=== PATIENT | female | born 1950 | race Caucasian/White ===

== ENCOUNTER 2017-12-13 08:16 | Day surgery (SDC) ==
[2016-04-20 16:32] VITALS: BMI 18.3
[2017-12-13] MEDS ORDERED: LIDOCAINE 1% 20 ML MDV ID STA (08:39)
[2017-12-13 08:58] VITALS: TEMP 98
[2017-12-13] MEDS ORDERED: LIDOCAINE HCL 2% LUER-JET ONE (11:43)
[2017-12-13] MEDS ORDERED: DIPRIVAN 20 ML VIAL IVP ONE (11:43)
[2017-12-13] MEDS ORDERED: ROMAZICON IVP ONE (11:43)
[2017-12-13] MEDS ORDERED: VERSED ONE (11:43)
[2017-12-13 12:36] VITALS: BP 135/70
--- NOTE | 2017-12-14 09:45 | OP ---
INDICATIONS FOR PROCEDURE: 67 year old female presents for endoscopy and colonoscopy exam. She apparently was anemic with heme positive stools but that is resolved. Her last hgb was above 12. She also has a family history of colon cancer and last colonoscopy was over 10 years ago. Her mother had colon cancer. She is scheduled for endoscopy and colonoscopy exams. MEDICATIONS: SEE ANESTHESIA NOTES. PROCEDURE: 1. ENDOSCOPY 2. COLONOSCOPY/SNARE POLYPECTOMY/ BIOPSY REPORT: The risks, benefits, alternatives and limitations were discussed in detail with the patient. Informed consent was obtained. After adequate sedation was achieved, the video endoscope was introduced in the posterior pharynx and esophagus under direct vision and easily advanced down to the second portion of the duodenum. I then slowly withdrew. The duodenal mucosa appeared unremarkable as did the duodenal bulb. The antrum body is relatively unremarkable. The scope was retroflexed to look at the cardia and fundus which revealed a large hiatal hernia. The scope was anteflexed. The diaphragmatic hiatus was roughly at 37cm and there was a hiatal hernia pouch that extended all the way up to 31cm. This was consistent with a 6cm hiatal hernia. The esophageal mucosa was unremarkable and the lumen was a little it torturous. The patient tolerated this procedure well with stable vital signs and pulse oximetry throughout. The patient's bed was turned a digital rectal exam revealed good tone, no masses. The colonoscope was introduced into the rectum and advanced under direct visual guidance to the cecum. The cecum was identified by the appendiceal orifice and IC valve. I then slowly withdrew the scope in circumferential manner and examined the mucosa quite careful. I looked on the proximal and distal sides of folds and flexures as best as possible. I was able to retroflex the scope in the right colon and the left colon to increase visualization. At the Hepatic flexure there was a small 4-5mm polyp that I removed and destroyed using a hot snare. In the distal transverse colon there is a raised 6mm polyp that I removed by snare technique this was retrieved in the sigmoid colon there was a 3rd polyp that was slightly raised about 6mm in size. It was removed by snare technique as well. There are a few small mouth diverticuli scattered throughout the sigmoid. On retroflex view of the anal canal there was a prominent anal papillae. I biopsied this for histological review although it did not appear to be polypoid tissue. No other abnormalities were noted. The prep was good. Withdraw time was 12 minutes and 58 seconds. The patient tolerated the procedure well with stable vital signs and pulse oximetry throughout. IMPRESSION: 1. Large 6cm hiatal hernia 2. 3 colonic polyps removed 3. Prominent anal papillae, biopsied 4. Mild sigmoid diverticulosis RECOMMENDATIONS: 1. High fiber diet 2. Reflux precautions 3. Await colon pathology and if everything is benign and adenomatous as expected I recommend repeat colonoscopy exam again in 3 years otherwise screening in 5 years if there is no adenomatous changes. 4. Await anal papillae biopsy to confirm benign nature 5. We will see her back in the office as needed CC: Dr. Bronson MUNOZ
== END 2017-12-13 14:40 | disposition home or self-care (01) ==
LOC: SURG 08:16
PROVIDERS: ATTEND Internal Medicine Gastroenterology
DX: Z86.2 Personal history of diseases of the blood and blood-forming organs and certain disorders involving the immune mechanism (principal); Z80.0 Family history of malignant neoplasm of digestive organs; D12.9 Benign neoplasm of anus and anal canal; D12.5 Benign neoplasm of sigmoid colon; D12.3 Benign neoplasm of transverse colon; K44.9 Diaphragmatic hernia without obstruction or gangrene; K57.30 Diverticulosis of large intestine without perforation or abscess without bleeding

== ENCOUNTER 2018-03-16 11:46 | Inpatient (IN) ==
[2018-03-16 14:33] VITALS: BMI 16.3
[2018-03-16] MEDS ORDERED: PAMELOR PO PRN (17:44)
[2018-03-16] MEDS ORDERED: CALCIUM CARBONATE 200 MG PO PRN (17:44)
[2018-03-16] MEDS ORDERED: NON-FORMULARY MEDICATION (Aspirin/Acetaminophen/Caffeine [Excedrin Migraine Caplet] 1 EACH PO PRN (17:44)
[2018-03-16] MEDS: SILVADENE CREAM TP SCH ×2 (18:22→20:58)
[2018-03-16] MEDS ORDERED: VANCOMYCIN 1 GM in SODIUM CHLORIDE 250 ML IV SCH (18:30)
[2018-03-16] MEDS: SODIUM CHLORIDE 1,000 ML IV SCH (18:31)
[2018-03-16] MEDS: PERCOCET 10-325 PO SCH ×2 (18:32→23:40)
[2018-03-16] MEDS ORDERED: AZACTAM ONE (20:00)
[2018-03-16] MEDS: AZACTAM 1 GM in SODIUM CHLORIDE 50 ML IV SCH (20:56)
[2018-03-16] MEDS: PLETAL PO SCH (20:57)
[2018-03-16] MEDS: PREDNISONE PO SCH (20:57)
[2018-03-17] MEDS ORDERED: AZACTAM ONE (04:53)
[2018-03-17] MEDS: PERCOCET 10-325 PO SCH ×3 (05:06→18:15)
[2018-03-17] MEDS: AZACTAM 1 GM in SODIUM CHLORIDE 50 ML IV SCH ×3 (05:06→20:43)
[2018-03-17] MEDS: VANCOMYCIN 500 MG in SODIUM CHLORIDE 100 ML IV SCH ×2 (09:07→22:44)
[2018-03-17] MEDS: SILVADENE CREAM TP SCH ×2 (09:07→18:48)
[2018-03-17] MEDS: PREDNISONE PO SCH ×4 (09:08→20:45)
[2018-03-17] MEDS ORDERED: PREDNISONE PO STA (10:51)
[2018-03-17] MEDS ORDERED: NON-FORMULARY MEDICATION (Ferrous Sulfate [Ferrous Sulfate] 325 MG) PO SCH (12:00)
[2018-03-17] MEDS: MULTIVITAMIN TABLET PO SCH (12:58)
[2018-03-17] MEDS: PLETAL PO SCH ×2 (12:58→20:44)
[2018-03-17] MEDS: FERROUS SULFATE PO SCH (12:58)
[2018-03-17] MEDS: VITAMIN D PO SCH (12:59)
[2018-03-17] MEDS: BENADRYL PO PRN ×2 (13:01→23:12)
[2018-03-17] MEDS: PRILOSEC PO SCH (16:47)
[2018-03-17] MEDS ORDERED: GENTAMICIN SULFATE TP ONE (18:17)
[2018-03-17] MEDS: GENTAMICIN SULFATE TP SCH (20:44)
[2018-03-17] MEDS ORDERED: NON-FORMULARY MEDICATION (Omeprazole Magnesium [Prilosec Otc] 20 MG) PO SCH (21:00)
[2018-03-18] MEDS: PERCOCET 10-325 PO SCH ×4 (00:21→17:23)
[2018-03-18] MEDS: AZACTAM 1 GM in SODIUM CHLORIDE 50 ML IV SCH ×3 (05:03→20:42)
[2018-03-18] MEDS: SODIUM CHLORIDE 1,000 ML IV SCH (06:23)
[2018-03-18] MEDS: VANCOMYCIN 500 MG in SODIUM CHLORIDE 100 ML IV SCH ×2 (10:13→22:22)
[2018-03-18] MEDS: GENTAMICIN SULFATE TP SCH ×3 (10:16→22:24)
[2018-03-18] MEDS: PREDNISONE PO SCH ×2 (10:17→20:42)
[2018-03-18] MEDS: VITAMIN D PO SCH (13:02)
[2018-03-18] MEDS: PLETAL PO SCH ×2 (13:02→20:42)
[2018-03-18] MEDS: FERROUS SULFATE PO SCH (13:03)
[2018-03-18] MEDS: MULTIVITAMIN TABLET PO SCH (13:03)
[2018-03-18] MEDS: PRILOSEC PO SCH (16:27)
[2018-03-19] MEDS: PERCOCET 10-325 PO SCH ×3 (00:16→11:36)
[2018-03-19] MEDS: AZACTAM 1 GM in SODIUM CHLORIDE 50 ML IV SCH ×3 (05:25→20:20)
[2018-03-19] MEDS: GENTAMICIN SULFATE TP SCH ×3 (09:18→20:20)
[2018-03-19] MEDS: PREDNISONE PO SCH ×2 (09:19→20:20)
[2018-03-19] MEDS: VANCOMYCIN 500 MG in SODIUM CHLORIDE 100 ML IV SCH (09:47)
[2018-03-19] MEDS: PLETAL PO SCH ×2 (11:35→20:20)
[2018-03-19] MEDS: VITAMIN D PO SCH (11:35)
[2018-03-19] MEDS: MULTIVITAMIN TABLET PO SCH (11:35)
[2018-03-19] MEDS: FERROUS SULFATE PO SCH (11:36)
[2018-03-19] MEDS: PERCOCET 10-325 PO PRN ×2 (15:26→21:55)
[2018-03-19] MEDS: PRILOSEC PO SCH (15:40)
[2018-03-19] MEDS: SODIUM CHLORIDE 1,000 ML IV SCH (18:03)
[2018-03-19] MEDS: VANCOMYCIN 750 MG in SODIUM CHLORIDE 250 ML IV SCH (22:13)
[2018-03-20] MEDS: AZACTAM 1 GM in SODIUM CHLORIDE 50 ML IV SCH ×3 (04:37→20:08)
[2018-03-20] MEDS: PERCOCET 10-325 PO PRN ×4 (05:24→21:32)
[2018-03-20] MEDS: GENTAMICIN SULFATE TP SCH ×3 (08:40→21:27)
[2018-03-20] MEDS: PREDNISONE PO SCH ×2 (08:40→20:08)
[2018-03-20] MEDS: VANCOMYCIN 750 MG in SODIUM CHLORIDE 250 ML IV SCH ×2 (08:40→21:27)
[2018-03-20] MEDS: MULTIVITAMIN TABLET PO SCH (13:11)
[2018-03-20] MEDS: VITAMIN D PO SCH (13:11)
[2018-03-20] MEDS: PLETAL PO SCH ×2 (13:11→20:08)
[2018-03-20] MEDS: FERROUS SULFATE PO SCH (13:11)
[2018-03-20] MEDS: PRILOSEC PO SCH (16:20)
[2018-03-21] MEDS: PERCOCET 10-325 PO PRN ×5 (02:48→22:13)
[2018-03-21] MEDS: AZACTAM 1 GM in SODIUM CHLORIDE 50 ML IV SCH ×3 (05:18→22:12)
[2018-03-21] MEDS: SODIUM CHLORIDE 1,000 ML IV SCH ×2 (05:52→16:39)
[2018-03-21] MEDS: VANCOMYCIN 750 MG in SODIUM CHLORIDE 250 ML IV SCH (08:33)
[2018-03-21] MEDS: PREDNISONE PO SCH (08:33)
--- NOTE | 2018-03-21 10:24 | PN ---
DATE OF SERVICE: 03/17/18 CHIEF COMPLAINT: "Her legs are getting worse." BRIEF HISTORY OF PRESENT ILLNESS: Yenny has a long-standing history of vasculitis of the lower extremity with resultant stasis dermatitis and open wounds. She had been working with [facility] as she has been for years. Dr. Garcia has encouraged skilled care placement or something that would enhance the abilities to work with her wounds and to this point she has refused. I was called by Dr. Garcia a couple of days before admission indicating that she had even worsened and he thought she needed hospitalization for antibiotics involving cellulitis and wound infection and I agree. It was decided that she would be admitted here at [place]. It took two days for the patient to finally decide to come in. INTERVAL CHANGES: She is tolerating her antibiotics without obvious rash, GI upset. She is eating , stooling, drinking and voiding. She is at bedrest with her legs elevated. She denies more than her usual leg pain. PHYSICAL EXAMINATION: V/S: Temperature 96.6 and remains afebrile, pulse 109, respirations 18, BP 127/ 76. LABS/X-RAYS: White count dropping from 14 to 11, hemoglobin with fluids 11.5, 10.4 with no signs of bleeding. Her initial sed rate was 87. Her chemistries show initial calcium 10.4 down to normal. Low albumins. Blood sugar this morning was 119. ASSESSMENT: 1. Cellulitis - bilateral lower extremities 2. Bilateral lower extremity wounds; potential with wound infection 3. Vasculitis - lower extremities - chronic 4. Chronic steroid use 5. Hyperglycemia - related to steroid use 6. Gait difficulties 7. Care issues 8. Nutritional risk PLAN: 1. Medicines reviewed - continue and clarify that with her intolerance to Silvadene we are switching to Gentamycin ointment. 2. Laboratories reviewed - will not need daily; cultures are noted to be growing gram negatives. 3. Imaging - none. 4. Activity - encourage leg elevation and no compression superior. 5. Diet - same. 6. Fluids - none. 7. Code status - full. 8. Discharge planning - she is open-minded to the possibility of skilled care placement. [facility]
[2018-03-21] MEDS: GENTAMICIN SULFATE TP SCH ×3 (10:50→22:16)
--- NOTE | 2018-03-21 11:03 | PN ---
DATE OF SERVICE: 03/18/18 CHIEF COMPLAINT: "My legs were worse." BRIEF HISTORY OF PRESENT ILLNESS: Adult lifelong problem with vasculitis lower extremity with lower extremity ulcers complicated by leg pain, stasis and swelling. She has seen [facility] for years. Early on saw many rheumatologists. Attempts at least with Methotrexate were minimally initially successful. She has used steroids for years and more recently, high dose. Dr. Garcia advised placement some time ago thinking nutritional support more consistent leg elevation and wound care would help; the patient declined. She called the week of admission, requested I admit her to [place] indicating her legs were much worse. The patient waited about 24 hours to make the decision and then she finally came and was admitted on the . Since her legs have been elevated she has been getting wound care and has been on Vancomycin and Azactam. She has grown Pseudomonas from her wound which is sensitive to everything. PHYSICAL EXAMINATION: V/S: Temperature 97.7, pulse 81, BP 128/82, respirations 16; all of this is consistent and stable. GENERAL: Frail, older than stated age. INTEGUMENT: Turgor is okay. Upper extremities more pale. Lower extremities distal with edema, redness in left ankle. Lateral medial has a 5 cm deep ulcer without odor or bones showing. Right is the same though these are smaller. CHEST: Kyphotic but clear. CARDIOVASCULAR: Regular without murmur. Trace to 1+ lower extremity edema ( with garments fitting tightly below the knee). LABS/X-RAYS: White count 12, previously 14; hemoglobin 10, previously 11.5, no signs of bleeding. Chemistries show stability. ASSESSMENT: 1. Lower extremity ulcers 2. Lower extremity edema 3. Lower extremity pain 4. Malnutrition 5. Gait difficulties 6. Anemia 10.2 PLAN: 1. Medications reviewed and same. 2. Labs - occasional anemia with chemistry and CBC. 3. Consults - none but we are considering trying to make arrangements for her to see Dr. Garcia or Wound Care during her visit here. 4. Discharge planning - we discussed again the need for skilled care - not sure if this would be a swing bed or residential placement. She has multiple reasons why she can't do this. 5. Code status - full. 6. Imaging none. [facility]
--- NOTE | 2018-03-21 11:17 | PN ---
DATE OF SERVICE: 03/19/18 CHIEF COMPLAINT: "Leg ulcers." BRIEF HISTORY OF PRESENT ILLNESS: Adult lifelong problem with vasculitis lower extremity with lower extremity ulcers complicated by leg pain, stasis and swelling. She has seen [facility] for years. Early on saw many rheumatologists. Attempts at least with Methotrexate were minimally initially successful. She has used steroids for years and more recently, high dose. Dr. Garcia advised placement some time ago thinking nutritional support more consistent leg elevation and wound care would help; the patient declined. She called the week of admission, requested I admit her to [place] indicating her legs were much worse. The patient waited about 24 hours to make the decision and then she finally came and was admitted on the . Since her legs have been elevated she has been getting wound care and has been on Vancomycin and Azactam. She has grown Pseudomonas from her wound which is sensitive to everything. INTERVAL CHANGES: Her cousin was here. We got to discuss with him her need someday maybe see a elevator technician even if it means travel to [place] and the need for skilled care and her concerns that she can't do such with taking care of her animals and et cetera. He indicates that he will continue to take care of things at home and she needs to take care of herself. PHYSICAL EXAMINATION: V/S: Temperature 97.6, pulse 109, BP 139/88, respirations 20. All of this is consistent and stable. GENERAL: Frail, older than stated age. INTEGUMENT: Turgor is okay. Upper extremities more pale. Lower extremities distal with edema, redness in left ankle. Lateral medial has a 5 cm deep ulcer without odor or bones showing. Right is the same though these are smaller. CHEST: Kyphotic but clear. CARDIOVASCULAR: Regular without murmur. Trace to 1+ lower extremity edema ( with garments fitting tightly below the knee). LABS/X-RAYS: None. Cultures still only growing Pseudomonas sensitive to what she is on. ASSESSMENT: 1. Lower extremity ulcers 2. Lower extremity edema 3. Lower extremity pain 4. Malnutrition 5. Gait difficulties 6. Anemia 10.2 PLANS: 1. Medications reviewed and same. 2. Labs - occasional anemia with chemistry and CBC. 3. Consults - none but we are considering trying to make arrangements for her to see Dr. Garcia or Wound Care during her visit here. 4. Discharge planning - we discussed again the need for skilled care - not sure if this would be a swing bed or prison placement. She has multiple reasons why she can't do this. 5. Code status - full. 6. Imaging none. [facility]
--- NOTE | 2018-03-21 12:57 | PN ---
DATE OF SERVICE: 03/20/18 CHIEF COMPLAINT: "Leg ulcers." BRIEF HISTORY OF PRESENT ILLNESS: Adult lifelong problem with vasculitis lower extremity with lower extremity ulcers complicated by leg pain, stasis and swelling. She has seen [facility] for years. Early on saw many rheumatologists. Attempts at least with Methotrexate were minimally initially successful. She has used steroids for years and more recently, high dose. Dr. Garcia advised placement some time ago thinking nutritional support more consistent leg elevation and wound care would help; the patient declined. She called the week of admission, requested I admit her to [place] indicating her legs were much worse. The patient waited about 24 hours to make the decision and then she finally came and was admitted on the . Since her legs have been elevated she has been getting wound care and has been on Vancomycin and Azactam. She has grown Pseudomonas from her wound which is sensitive to everything. INTERVAL CHANGES: Her leg swelling has gone down. She is eating with normal stools. She is drinking and voiding okay. She has still pretty much been in bed. She has changed her mind about going to a snf after yesterday's conversation with her cousin. PHYSICAL EXAMINATION: V/S: Temperature 97.5, pulse 93, BP 130/83, respirations 20. Pattern is stable. GENERAL: Frail, older than stated age. INTEGUMENT: Turgor is okay. Upper extremities more pale. Lower extremities distal with edema, redness in left ankle. Lateral medial has a 5 cm deep ulcer without odor or bones showing. Right is the same though these are smaller. In general all the wounds seem to have some edge granulation and flask cleaner bases. Today there is no leg edema. CHEST: Kyphotic but clear. CARDIOVASCULAR: Regular without murmur. Trace to 1+ lower extremity edema ( with garments fitting tightly below the knee). LABS/X-RAYS: Vancomycin and trough 8.95, managed by pharmacy. ASSESSMENT: 1. Lower extremity ulcers 2. Lower extremity edema 3. Lower extremity pain 4. Malnutrition 5. Gait difficulties 6. Anemia 10.2 PLAN: 1. Medications reviewed and same. 2. Labs - occasional anemia with chemistry and CBC. 3. Consults - none but we are considering trying to make arrangements for her to see Dr. Garcia or Wound Care during her visit here. 4. Discharge planning - we discussed again the need for skilled care - not sure if this would be a swing bed or snf placement. She has multiple reasons why she can't do this. 5. Code status - full. 6. Imaging none. [facility]
[2018-03-21] MEDS: FERROUS SULFATE PO SCH (13:26)
[2018-03-21] MEDS: PLETAL PO SCH ×2 (13:26→22:12)
[2018-03-21] MEDS: VITAMIN D PO SCH (13:26)
[2018-03-21] MEDS: MULTIVITAMIN TABLET PO SCH (13:26)
[2018-03-21] MEDS: PRILOSEC PO SCH (16:40)
[2018-03-22] MEDS: PERCOCET 10-325 PO PRN ×3 (03:05→17:06)
[2018-03-22] MEDS: AZACTAM 1 GM in SODIUM CHLORIDE 50 ML IV SCH ×2 (04:09→13:34)
[2018-03-22] MEDS ORDERED: PREDNISONE PO SCH (08:00)
[2018-03-22] MEDS: GENTAMICIN SULFATE TP SCH ×2 (10:45→17:05)
[2018-03-22] MEDS: FERROUS SULFATE PO SCH (13:34)
[2018-03-22] MEDS: MULTIVITAMIN TABLET PO SCH (13:34)
[2018-03-22] MEDS: PLETAL PO SCH (13:34)
[2018-03-22] MEDS: VITAMIN D PO SCH (13:35)
[2018-03-22] MEDS: PRILOSEC PO SCH (17:06)
[2018-03-22 18:30] VITALS: BP 111/71; TEMP 97.4
== END 2018-03-22 20:20 | disposition home or self-care (01) | DRG 300 ==
LOC: MEDSURG B 11:46 → OBSVTOIN 03-17 14:21
PROVIDERS: ADMIT Family Medicine; ATTEND Family Medicine
DX: I83.209 Varicose veins of unspecified lower extremity with both ulcer of unspecified site and inflammation (principal); L97.919 Non-pressure chronic ulcer of unspecified part of right lower leg with unspecified severity; L97.929 Non-pressure chronic ulcer of unspecified part of left lower leg with unspecified severity; E46 Unspecified protein-calorie malnutrition; B96.5 Pseudomonas (aeruginosa) (mallei) (pseudomallei) as the cause of diseases classified elsewhere; I77.6 Arteritis, unspecified; D64.9 Anemia, unspecified; R26.2 Difficulty in walking, not elsewhere classified; R73.9 Hyperglycemia, unspecified; Z79.52 Long term (current) use of systemic steroids; Z79.899 Other long term (current) drug therapy
CPT/HCPCS: 36415; 80053; 80202; 85025; 85651; 87070; 87186

== ENCOUNTER 2019-03-20 14:23 | Outpatient (POV) | payer OTHER ==
[2018-10-09 23:12] VITALS: BMI 14.6
== END 2019-03-20 17:00 ==
LOC: OUTPT 14:23
PROVIDERS: ATTEND Otolaryngology
DX: R42 Dizziness and giddiness (principal)